=== PATIENT | female | born 2000 | race Hispanic/Latino ===

== ENCOUNTER 2019-12-02 18:19 | Observation (INO) | payer BC ==
[2019-12-02 19:44] VITALS: BMI 40.5
[2019-12-02] MEDS: MORPHINE 2 MG/ML SYR IV PRN (20:55)
[2019-12-02] MEDS: NA CHLORIDE 0.9% 1,000 ML IV SCH (20:55)
[2019-12-02] MEDS ORDERED: CEFOXITIN SODIUM 1 GM/VIAL IVPB SCH (21:00)
[2019-12-02] MEDS ORDERED: CEFOXITIN SODIUM 1 GM/VIAL ONE (21:05)
[2019-12-02] MEDS: CEFOXITIN 1 GM in NA CHLORIDE 0.9% 50 ML IVPB SCH (21:37)
[2019-12-02] MEDS: ONDANSETRON 4 MG/2 ML VIAL IV PRN (21:37)
[2019-12-02] MEDS ORDERED: NA CHLORIDE 0.9% 50 ML ONE (21:38)
[2019-12-03] MEDS ORDERED: NA CHLORIDE 0.9% 50 ML ONE (04:33)
[2019-12-03 04:37] LABS: Urine Appearance CLEAR; Urine Bilirubin NEGATIVE (NEG); Urine Blood NEGATIVE (NEG); Urine Color YELLOW; Urine Glucose NEGATIVE (NEG); Urine Protein NEGATIVE (NEG); Urine Specific Gravity >=1.030 (1.005-1.030); Urine Urobilinogen 0.2 mg/dL (0.2-1.0)
[2019-12-03 05:02] LABS: Absolute Lymphocytes (CBC) 2.4 K/uL (0.7-4.9); Basophils % 0.5 % (0-1.3); Hematocrit 35.5 % (36.0-45.0); Lymphocytes % 20.8 % (15.3-44.8); MPV 8.5 fL (7.6-11.3); RBC Red Blood Cell Count 4.31 M/uL (3.86-4.86)
[2019-12-03] MEDS: CEFOXITIN 1 GM in NA CHLORIDE 0.9% 50 ML IVPB SCH (05:06)
[2019-12-03] MEDS: NA CHLORIDE 0.9% 1,000 ML IV SCH ×2 (05:09→20:32)
[2019-12-03 05:22] LABS: Albumin 3.3 g/dL (3.4-5.0); Bilirubin Direct 0.1 mg/dL (0-0.2); Bilirubin Total 0.4 mg/dL (0.2-1.0); Potassium 3.7 mmol/L (3.5-5.1); Protein, Total 6.2 g/dL (6.4-8.2)
[2019-12-03 05:32] LABS: Urine Bacteria <20 /HPF (<20); Urine Culture Reflex Order REFLEXED; Urine RBC NONE SEEN /HPF (NONE SEEN); Urine Urothelial Cells <5 /HPF (NONE SEEN)
--- NOTE | 2019-12-03 08:54 | RAD REPORT ---
EXAM DESCRIPTION: NM - Hepatobiliary System W/ Ph - 12/03/2019 7:36 am CLINICAL HISTORY: ABDOMINAL PAIN COMPARISON: No comparisons TECHNIQUE: The patient was administered 6.1 mCi Tc99m Choletec. Imaging of the right upper quadrant was performed initially for up to 60 minutes. Gallbladder ejection fraction determination was then performed utilizing synthetic 1.5 mgm CCK over a slow 30 minute infusion. FINDINGS: Normal hepatic uptake and excretion with appropriate clearance of background blood pool ac tivity. Normal visualization of biliary and small bowel activity. Gallbladder visualizes within normal time limits. The calculated ejection fraction is 26% (normal gre ater than 35%). Subjective pain reported by the patient: Pre-procedure - 5/10 During or subsequent to synthetic CCK infusion - 03/28 IMPRESSION: Patient cystic duct and patent sphincter of Oddi. No delay in visualization of the gallb ladder, biliary tree, or duodenum. Ejection fraction is 26% (normal greater than 35%). Subjective patient pain assessment as detailed above.
[2019-12-03] MEDS: ONDANSETRON 4 MG/2 ML VIAL IV PRN ×2 (08:55→17:01)
[2019-12-03] MEDS: MORPHINE 2 MG/ML SYR IV PRN ×3 (08:56→20:31)
[2019-12-03] MEDS ORDERED: Ringers Lactate 1,000 ML IV ONE (10:25)
[2019-12-03] MEDS ORDERED: propofoL 200 MG/20 ML VIAL IV ONE (10:36)
[2019-12-03] MEDS ORDERED: MIDAZOLAM HCL 2 MG/2 ML INJ ONE ×2 (10:36→12:14)
[2019-12-03] MEDS ORDERED: LIDOCAINE 2% MPF 5 ML VIAL ONE (10:36)
[2019-12-03] MEDS ORDERED: FENTANYL CITR 100 MCG/2 ML ONE ×2 (10:37→11:31)
[2019-12-03] MEDS ORDERED: ROCURONIUM 50 MG/5 ML VIAL IV ONE (10:38)
[2019-12-03] MEDS ORDERED: NEOSTIGMINE 1 MG/ML -5 ML ONE (10:38)
[2019-12-03] MEDS ORDERED: ONDANSETRON 4 MG/2 ML VIAL ONE (10:38)
[2019-12-03] MEDS ORDERED: GLYCOPYRROLATE 0.2 MG/ML SYR ONE (10:38)
[2019-12-03] MEDS ORDERED: SUCCINYLCHOLINE 20 MG/ML (10 ML) IV ONE (10:51)
[2019-12-03] MEDS: CEFOXITIN/SWI 1gm 1 GM/10 ML SYR IV SCH ×2 (10:55→18:18)
--- NOTE | 2019-12-03 11:24 | HP ---
Date of Admission: 12/02/2019 Diagnoses: Epigastric and right upper quadrant pain, cholecystitis. History Of Present Illness: This is the case of a 19-year-old patient with about a 2-day history of epigastric and right upper quadrant pain radiating to the back associated with nausea, vomiting, bloa ting. Not associated with any trauma. Most of the time, postprandial; although, in the last 12 hour s, has not gone away. She denies any dysuria, hematuria, hematochezia, or melena. Denies any recent travelling out of the country. Denies any family member sick at home. The parents are well known b y us since one of them has stones in the gallbladder and other one had biliary dyskinesia with sympto ms similar to that. The patient went to [place] [facility], which is across the street, had initial workup. [facility] physician is convinced this patient has a cholecystitis, although ultrasound at that moment did not show any gallstones. He asked me that this patient had intractable pain, to see if I can take t patient to this hospital and keep her under observation or even prove that it is a gallbladder dis ease. She has no reflux at this time. No history of peptic ulcer disease. I accepted the patient f or transfer. Allergies: NONE. Social History: She does smoke. She does drink alcohol. Medical History: None. Medications: None. Review of Systems: Ten points otherwise unremarkable. Family History: As above. Physical Examination: General: The patient is awake and alert. HEENT: Pupils are equal and reactive, anicteric. Neck: Supple. Chest: Clear. Abdomen: Epigastric and right upper quadrant pain with Infante sign positive. The rest of the abdome n is soft and depressible. Rectal: Deferred. Breast: Deferred. Extremity: Good capillary refill. Blood work from [place] was reviewed. It is not present in our computer. The ultrasound done in [place] , we do not have the films, we just have the report. They could not find any stones in the gallbladd er. Assessment And Plan: This 19-year-old patient is behaving, with Infante sign, like acute cholecystiti s. I remember the dad having similar symptoms and we proved eventually he had biliary dyskinesia, an d the parents obviously want something to be done if possible. So, admitted the patient to the [facility] to keep her in bowel rest and then order a HIDA scan to see if she has a component of cholecystit is. The benefits, alternatives, and risks of laparoscopic, possible open cholecystectomy were fully explained to her and the parents in case we prove that this is gallbladder with benefits, alternative s, and risks including, but not limited to infection, bleeding, damage to adjacent structures, anesth esia complication, choledocholithiasis, bile leak, pancreatitis, NE, and even . She also unders tands this may not relieve any symptoms. She might need more than 1 surgical intervention. She was explained also the importance of weight loss. If this continues, we explained to her the importance of diet control and eventually she will be referred to a chart collector in the morning. VEENA Voice ID: [id number]
--- NOTE | 2019-12-03 11:43 | P.BOP ---
Preoperative diagnosis: acute cholecystitis, RUQ abd pain , biliary dyskinesia Postoperative diagnosis: same Primary procedure: Lap cholecystectomy Industrial Pharmacist: NICKO HICKS (FERMENTING CELLARS SUPERVISOR) Estimated blood loss: <10cc Specimen: gb Findings: as above Anesthesia: General Complications: None Transferred to: Recovery Room Condition: Good
[2019-12-03] MEDS ORDERED: MEPERIDINE HCL 25 MG/0.5 ML ONE (12:32)
[2019-12-03] MEDS: HYDROCODONE/APAP 5/325 MG TAB PO PRN ×3 (14:05→21:47)
[2019-12-03 22:26] VITALS: O2SAT 98
--- NOTE | 2019-12-03 23:05 | OP ---
Date of Procedure: 12/03/2019 Surgeon: Anastacio Lou MD Preoperative Diagnoses: Intractable right upper quadrant abdominal pain and epigastric pain, Infante sign positive, morbid obesity, biliary dyskinesia, acute cholecystitis. Postoperative Diagnosis: Intractable right upper quadrant abdominal pain and epigastric pain, Infante sign positive, morbid obesity, biliary dyskinesia, acute cholecystitis. Procedure: Laparoscopic cholecystectomy. Anesthesia: General plus local. Findings: As above. Indications: This is a case 19-year-old patient transferred from ER yesterday due to intractable abd ominal pain, right upper quadrant with Infante sign positive. An initial sonogram did not show gallst ones, but HIDA scan shows bladder dyskinesia with duplication of symptoms. The patient's family had this experience before biliary dyskinesia to the ER, she has the same symptoms and they pr eferred to her to have the surgery done during this admission. We previously consulted GI since the doctors in the family to rule out any other a disease including peptic ulcer disease or GI bleed component. At this moment, there is no gastrointestinal bleeding and there is no hematemesis. She understands the importance of diet control. The patient signed a consent. Description Of Procedure: Patient was brought to the operating room, placed in supine position. Ane sthesia was given without complication. Abdominal area was prepped and draped in sterile fashion. M arcaine 0.5% was injected for local anesthetic, followed by sharp incision of the skin in the infraum bilical region. Incision was carried down to fascia, which was opened under direct vision. Peritone um was encountered, opened under direct vision. Vicryl #1 placed inside of the fascia. Dary troca r was carefully introduced. No bleeding was obtained. I placed 3 more trocars, 5 mm each one of the m on the right upper quadrant under direct visualization. This allowed me to put a grasper in the fu ndus of the gallbladder. The gallbladder looks so distended that have to be deflated with an Endo ne edle under direct visualization. was removed. A grasper placed in the fundus of the gall bladder, another grasper in the infundibulum retracting the gallbladder in the inferolateral fashion exposing the triangle of Calot and obtaining critical view of safety. Cystic duct and cystic artery were clearly isolated free circumferentially and a connection between those and the gallbladder were clearly identified. I proceeded to ligate those by using at least 3 clips proximal, 1 clip distal, l igation in middle. The same was done with the cystic artery. No bile leak. No bleeding. The gallb ladder was removed from liver using Bovie cauterizer and removed from abdominal cavity using EndoCatc h through the umbilical incision. The area was inspected once again. The gallbladder fossa with no bleeding. Clips were intact with no bleeding. No bile leak. At that moment, I proceeded to remove the trocars under direct vision. Deflated the pneumoperitoneum. Closed the fascia with #1 Vicryl. Irrigated subcutaneous tissue closed that with 3-0 chromic and skin in a subcuticular fashion with St van-Strips on top. Sponge count and instrument counts were correct. Patient tolerated the procedure well. Patient was sent to recovery in stable condition. KLAUS/TRAVIS Voice ID: [id number] Report ID: [id number]
[2019-12-04] MEDS: MORPHINE 2 MG/ML SYR IV PRN ×4 (00:07→12:31)
[2019-12-04] MEDS: CEFOXITIN/SWI 1gm 1 GM/10 ML SYR IV SCH ×2 (00:07→08:13)
[2019-12-04] MEDS: HYDROCODONE/APAP 5/325 MG TAB PO PRN ×4 (02:07→14:11)
[2019-12-04] MEDS ORDERED: PANTOPRAZOLE 40MG TABLET PO SCH (06:30)
[2019-12-04] MEDS: NA CHLORIDE 0.9% 1,000 ML IV SCH (08:17)
[2019-12-04 14:17] VITALS: BP 115/72; TEMP 97.3
== END 2019-12-04 14:24 | disposition home or self-care (01) ==
LOC: 4TH 18:19
PROVIDERS: ADMIT Surgery; ATTEND Surgery
PROC: 0FT44ZZ Resection of Gallbladder, Percutaneous Endoscopic Approach (ICD-10-PCS; principal; 2019-12-03 11:15)
DX: K81.0 Acute cholecystitis (principal); K82.8 Other specified diseases of gallbladder; E66.01 Morbid (severe) obesity due to excess calories; Z68.41 Body mass index [BMI] 40.0-44.9, adult
CPT/HCPCS: 87088; 85025; 81001; 87086; 80048; 36415; 81025; 80076; 88304; 78227; 47562; G0379; J2704; J2250 ×2; J3010 ×2; J2270 ×8; J2175; J2710; G0378 ×5; J7120; J7030 ×3; J0694; J2405 ×4; J2805; A9537; J0330

== ENCOUNTER 2020-05-15 18:25 | Emergency (ER) | payer BC, SELFPAY ==
[2020-05-15] MEDS ORDERED: IBUPROFEN 400 MG TAB ONE (20:42)
--- NOTE | 2020-05-15 21:28 | RAD REPORT ---
EXAM DESCRIPTION: RAD - Thoracic Spine Ap/Lat - 05/15/2020 9:20 pm CLINICAL HISTORY: PAIN Radiculopathy COMPARISON: No comparisons FINDINGS: The thoracic spine vertebral body heights and disc spaces are largely maintained. No acute compression fracture. No significant malalignment. IMPRESSION: Negative study.
--- NOTE | 2020-05-15 21:28 | RAD REPORT ---
EXAM DESCRIPTION: RAD - Lumbar Spine 3 Views - 05/15/2020 9:20 pm CLINICAL HISTORY: PAIN Radiculopathy COMPARISON: No comparisons FINDINGS: Vertebral body heights appear maintained. No compression fracture noted. Mild lower lumbar spondylosis. No spondylolysis or spondylolisthesis. Cholecystectomy. IMPRESSION: No acute lumbar spine abnormality.
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
[2020-05-15 22:26] VITALS: BP 136/79; TEMP 97.4; O2SAT 99
--- NOTE | 2020-05-16 11:55 | RAD REPORT ---
EXAM DESCRIPTION: RAD - Knee Right 2 View - 05/15/2020 9:23 pm CLINICAL HISTORY: Right knee pain status post injury FINDINGS: No fracture or dislocation is seen.
== END 2020-05-15 22:11 | disposition home or self-care (01) ==
LOC: ER 18:25
DX: M25.561 Pain in right knee (principal); V89.2XXA Person injured in unspecified motor-vehicle accident, traffic, initial encounter
CPT/HCPCS: 72070; 72100; 99284

== ENCOUNTER 2024-09-02 01:13 | Emergency (ER) | payer OTHER ==
[2024-09-02] MEDS ORDERED: ONDANSETRON 4 MG/2 ML VIAL ONE (01:43)
[2024-09-02] MEDS ORDERED: NA CHLORIDE 0.9% 1,000 ML ONE (01:44)
[2024-09-02 01:45] LABS: Absolute Eosinophils 0.1 K/uL (0-0.5); Absolute Lymphocytes (CBC) 1.2 K/uL (0.7-4.9); Absolute Monocytes 0.5 K/uL (0.1-1.3); Absolute Neutrophil 10.3 K/uL (1.8-8.0); Basophils % 0.2 % (0-1.3); Eosinophils % 0.5 % (0-4.4); Hematocrit 34.9 % (36.0-45.0); Hemoglobin 11.7 g/dL (12.0-15.0); Lymphocytes % 9.8 % (15.3-44.8); MCHC 33.4 g/dL (32.0-36.0); MPV 8.5 fL (7.6-11.3); Neutrophils % 85.5 % (41.7-73.7); Nucleated Red Blood Cells % 0.1 % (0-0); Platelets 268 thou/uL (152-406); RBC Red Blood Cell Count 4.16 M/uL (3.86-4.86); Red Cell Distribution Width 13.6 % (12.1-15.2)
[2024-09-02 01:57] LABS: AST/SGOT 16 U/L (15-37); Albumin 2.8 g/dL (3.4-5.0); Albumin/Globulin Ratio 0.7 (1.1-1.8); Alkaline Phosphatase 130 U/L (45-117); Anion Gap 10.7 mEq/L (5.0-15.0); BUN Blood Urea Nitrogen 10 mg/dL (7-18); Bicarbonate 21 mEq/L (21-32); Bilirubin Total 0.3 mg/dL (0.2-1.0); Globulin 3.9 g/dL (2.3-3.5); Glomerular Filtration Rate 124 ml/min (=/>90); Glucose Level 101 mg/dL (74-106); Lipase 46 U/L (13-75); Potassium 3.7 mEq/L (3.5-5.1); Protein, Total 6.7 g/dL (6.4-8.2); Sodium Level 138 mEq/L (136-145)
[2024-09-02 02:02] LABS: ALT/SGPT < 14 U/L (13-56)
--- NOTE | 2024-09-02 02:35 | ER ---
Nurse's Notes [facility] Name: Trice Lou Age: 24 yrs Sex: Female : 2000 Arrival Date: 09/02/2024 Time: 01:13 Bed 15 Private MD: Diagnosis: 33 weeks gestation of ;Vomiting;Diarrhea, unspecified Presentation: 09/02 01:28 Chief complaint: Patient states: I have been throwing up and have had diarrhea since vc1 about 6:30 last night. I am worried about being dehydrated. Baby is moving and I have a doppler at home and his heart rate was 128. Coronavirus screen: Client denies travel out of the [place] in the last 14 days. At this time, the client does not indicate any symptoms associated with coronavirus-19. Ebola Screen: Patient negative for fever greater than or equal to 101.5 degrees Fahrenheit, and additional compatible Ebola Virus Disease symptoms Patient denies exposure to infectious person. Patient denies travel to an Ebola-affected area in the 21 days before illness onset. No symptoms or risks identified at this time. Initial Sepsis Screen: Does the patient meet any 2 criteria? No. Patient's initial sepsis screen is negative. Does the patient have a suspected source of infection? No. Patient's initial sepsis screen is negative. Risk Assessment: Do you want to hurt yourself or someone else? Patient reports no desire to harm self or others. Onset of symptoms was September 01, 2024 at 18:30. 01:28 Method Of Arrival: Ambulatory vc1 01:28 Acuity: NESS 3 vc1 Triage Assessment: 01:34 General: Appears in no apparent distress. comfortable, well groomed, well developed, vc1 well nourished, Behavior is calm, cooperative, appropriate for age. Pain: Complains of pain in right lower quadrant and left lower quadrant. EENT: No deficits noted. No signs and/or symptoms were reported regarding the EENT system. Neuro: Level of Consciousness is awake, alert, obeys commands, Oriented to person, place, time, situation, Appropriate for age. Cardiovascular: Capillary refill < 3 seconds Patient's skin is warm and dry. Respiratory: Airway is patent Respiratory effort is even, unlabored, Respiratory pattern is regular, symmetrical. GI: Reports lower abdominal pain, diarrhea, nausea, vomiting. : No deficits noted. No signs and/or symptoms were reported regarding the genitourinary system. : Denies vaginal bleeding. Derm: Skin is intact, is healthy with good turgor, Skin is dry, Skin is normal, Skin temperature is warm. Musculoskeletal: No deficits noted. No signs and/or symptoms reported regarding the musculoskeletal system. Circulation, motion, and sensation intact. Range of motion: intact in all extremities. 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 - Infectious Disease History:: Denies. - Social history:: Smoking status: Reported history of juuling and/or vaping. - Family history:: not pertinent. Screenin:32 [facility] ED Fall Risk Assessment (Adult) History of falling in the last 3 months, vc1 including since admission No falls in past 3 months (0 pts) Confusion or Disorientation No (0 pts) Intoxicated or Sedated No (0 pts) Impaired Gait No (0 pts) Mobility Assist Device Used No (0 pt) Altered Elimination No (0 pt) Score/Fall Risk Level 0 - 2 = Low Risk Oriented to surroundings, Maintained a safe environment, Educated pt \T\ family on fall prevention, incl call for assistance when getting out of bed. Abuse screen: Denies threats or abuse. Nutritional screening: No deficits noted. Tuberculosis screening: No symptoms or risk factors identified. Assessment: 01:30 General: Appears in no apparent distress. Behavior is calm, cooperative, appropriate dd2 for age. Pain: Denies pain. Neuro: Level of Consciousness is awake, alert, obeys commands, Oriented to person, place, time, situation, Appropriate for age. Cardiovascular: Patient's skin is warm and dry. Respiratory: Airway is patent Respiratory effort is even, unlabored, Respiratory pattern is regular, symmetrical. GI: Abdomen is round non-distended, Bowel sounds present X 4 quads. Abd is soft and non tender X 4 quads. Reports diarrhea, nausea, vomiting. : No signs and/or symptoms were reported regarding the genitourinary system. EENT: No deficits noted. No signs and/or symptoms were reported regarding the EENT system. Derm: No deficits noted. No signs and/or symptoms reported regarding the dermatologic system. Musculoskeletal: No deficits noted. No signs and/or symptoms reported regarding the musculoskeletal system. Vital Signs: 01:28 BP 117 / 86; Pulse 91; Resp 17; Temp 98.5; Pulse Ox 98% ; Weight 97.07 kg; Height 5 ft. vc1 2 in. ; 02:54 BP 121 / 78; Pulse 84; Resp 16; Pulse Ox 98% ; dd2 01:28 Body Mass Index 39.14 (97.07 kg, 157.48 cm) vc1 ED Course: 01:17 Patient arrived in ED. [id number] 01:19 Anshu Hutson MD is Attending Physician. driss 01:30 Triage completed. vc1 01:30 Provided Education on: call light, medications, labs/procedures and result times. dd2 01:30 No provider procedures requiring assistance completed. dd2 01:31 Arm band placed on right wrist. vc1 01:32 Patient has correct armband on for positive identification. Bed in low position. Call vc1 light in reach. Pulse ox on. NIBP on. 01:34 Inserted saline lock: 22 gauge in right antecubital area, using aseptic technique. oe Blood collected. Flushed with 10 mL NS. 01:35 ELROY GONZALES, RN is Primary Nurse. dd2 01:35 CBC with Diff Sent. dd2 01:35 CMP Sent. dd2 01:35 Lipase Sent. dd2 02:04 US OB Limited In Process Unspecified. EDMS 02:59 IV discontinued, intact, bleeding controlled, No redness/swelling at site. Pressure dd2 dressing applied. Administered Medications: 01:55 Drug: Ondansetron IVP 4 mg IVP once; over 2 minutes Route: IVP; Site: right antecubital;dd2 02:10 Follow up: Response: No adverse reaction dd2 01:55 Drug: NS 0.9% IV 1000 ml IV at 1 bolus Per protocol; to be given as a bolus over 60 dd2 minutes Route: IV; Rate: 1 bolus; Site: right antecubital; 02:10 Follow up: Response: No adverse reaction dd2 02:10 Follow up: Response: No adverse reaction dd2 02:55 Follow up: Response: No adverse reaction; IV Status: Completed infusion dd2 Medication: 01:32 VIS not applicable for this client. vc1 Outcome: 02:34 Discharge ordered by . driss 02:59 Discharged to home ambulatory, dd2 02:59 Condition: stable 02:59 Discharge instructions given to patient, Instructed on discharge instructions, follow up and referral plans. medication usage, Demonstrated understanding of instructions, follow-up care, medications, 02:59 Prescriptions given X 1, 03:00 Patient left the ED. dd2 Signatures: Dispatcher [employer] EDMS Anshu Hutson MD MD cha Espinosa, Orlando oe Jeffries, Jennifer [email or web address] Zuleika Diaz RN RN vc1 ELROY GONZALES RN RN dd2
--- NOTE | 2024-09-02 02:35 | EDPHYS ---
Physician Documentation [facility] Name: Trice Lou Age: 24 yrs Sex: Female : 2000 Arrival Date: 09/02/2024 Time: 01:13 Bed 15 Private MD: ED Physician Anshu Hutson HPI: 09/02 02:31 This 24 yrs old Female presents to ER via Ambulatory with complaints of Est 35 driss wks gestation, Nausea/Vomiting. 02:31 The patient presents to the emergency department with nausea, vomiting, diarrhea, that driss is intermittent. Onset: The symptoms/episode began/occurred yesterday. Possible causes: unknown. The symptoms are aggravated by nothing. The symptoms are alleviated by nothing. Associated signs and symptoms: The patient has no apparent associated signs or symptoms. The patient has experienced similar episodes in the past, a few times. 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 - Infectious Disease History:: Denies. - Social history:: Smoking status: Reported history of juuling and/or vaping. - Family history:: not pertinent. ROS: 02:31 Constitutional: Negative for fever, chills, and weight loss, Eyes: Negative for injury, driss pain, redness, and discharge, ENT: Negative for injury, pain, and discharge, Neck: Negative for injury, pain, and swelling, Cardiovascular: Negative for chest pain, palpitations, and edema, Respiratory: Negative for shortness of breath, cough, wheezing, and pleuritic chest pain, Back: Negative for injury and pain, : Negative for injury, bleeding, discharge, and swelling, MS/Extremity: Negative for injury and deformity, Skin: Negative for injury, rash, and discoloration, Neuro: Negative for headache, weakness, numbness, tingling, and seizure, Psych: Negative for depression, anxiety, suicide ideation, homicidal ideation, and hallucinations, Allergy/Immunology: Negative for hives, rash, and allergies, Endocrine: Negative for neck swelling, polydipsia, polyuria, polyphagia, and marked weight changes, Hematologic/Lymphatic: Negative for swollen nodes, abnormal bleeding, and unusual bruising, 02:31 Abdomen/GI: Positive for nausea and vomiting, nausea, vomiting, diarrhea, abdominal distension, Exam: 02:31 Constitutional: This is a well developed, well nourished patient who is awake, alert, driss and in no acute distress. Head/Face: Normocephalic, atraumatic. Eyes: Pupils equal round and reactive to light, extra-ocular motions intact. Lids and lashes normal. Conjunctiva and sclera are non-icteric and not injected. Cornea within normal limits. Periorbital areas with no swelling, redness, or edema. ENT: Nares patent. No nasal discharge, no septal abnormalities noted. Tympanic membranes are normal and external auditory canals are clear. Oropharynx with no redness, swelling, or masses, exudates, or evidence of obstruction, uvula midline. Mucous membranes moist. Neck: Trachea midline, no thyromegaly or masses palpated, and no cervical lymphadenopathy. Supple, full range of motion without nuchal rigidity, or vertebral point tenderness. No Meningismus. Chest/axilla: Normal chest wall appearance and motion. Nontender with no deformity. No lesions are appreciated. Cardiovascular: Regular rate and rhythm with a normal S1 and S2. No gallops, murmurs, or rubs. Normal PMI, no JVD. No pulse deficits. Respiratory: Lungs have equal breath sounds bilaterally, clear to auscultation and percussion. No rales, rhonchi or wheezes noted. No increased work of breathing, no retractions or nasal flaring. Abdomen/GI: Soft, non-tender, with normal bowel sounds. No distension or tympany. No guarding or rebound. No evidence of tenderness throughout. Back: No spinal tenderness. No costovertebral tenderness. Full range of motion. Skin: Warm, dry with normal turgor. Normal color with no rashes, no lesions, and no evidence of cellulitis. MS/ Extremity: Pulses equal, no cyanosis. Neurovascular intact. Full, normal range of motion. Neuro: Awake and alert, GCS 15, oriented to person, place, time, and situation. Cranial nerves II-XII grossly intact. Motor strength 5/5 in all extremities. Sensory grossly intact. Cerebellar exam normal. Normal gait. Psych: Awake, alert, with orientation to person, place and time. Behavior, mood, and affect are within normal limits. Vital Signs: 01:28 BP 117 / 86; Pulse 91; Resp 17; Temp 98.5; Pulse Ox 98% ; Weight 97.07 kg; Height 5 ft. vc1 2 in. ; 02:54 BP 121 / 78; Pulse 84; Resp 16; Pulse Ox 98% ; dd2 01:28 Body Mass Index 39.14 (97.07 kg, 157.48 cm) vc1 MDM: 01:19 Medical Screening Exam initiated driss 02:33 Differential diagnosis: Nonspecific abd pain, gastritis, cholecystitis, pancreatitis, driss appendicitis, diverticulitis, viral gastroenteritis, gastroenteritis. Data reviewed: vital signs, nurses notes, lab test result(s), radiologic studies, ultrasound. I considered the following discharge prescriptions or medication management in the emergency department Medications were administered in the Emergency Department. See MAR. Test considered but Not performed: CT: NO CT. Historians other than the Patient: PT YASMEEN INFORMED. Care significantly affected by the following chronic conditions: Obesity, . 09/02 01:22 Order name: CBC with Diff [facility] 09/02 01:22 Order name: CMP; Complete Time: 02:27 [facility] 09/02 01:22 Order name: Lipase; Complete Time: 02:27 [facility] 09/02 01:22 Order name: Urinalysis w/ reflexes [facility] 09/02 01:55 Order name: Manual Differential EDMS 09/02 01:22 Order name: US OB Limited [facility] 09/02 01:22 Order name: IV Saline Lock; Complete Time: 01:35 [facility] 09/02 01:22 Order name: Labs collected and sent; Complete Time: :35 [facility] 09/02 02:31 Order name: PO challenge driss Administered Medications: 01:55 Drug: Ondansetron IVP 4 mg IVP once; over 2 minutes Route: IVP; Site: right antecubital;dd2 02:10 Follow up: Response: No adverse reaction dd2 01:55 Drug: NS 0.9% IV 1000 ml IV at 1 bolus Per protocol; to be given as a bolus over 60 dd2 minutes Route: IV; Rate: 1 bolus; Site: right antecubital; 02:10 Follow up: Response: No adverse reaction dd2 02:10 Follow up: Response: No adverse reaction dd2 02:55 Follow up: Response: No adverse reaction; IV Status: Completed infusion dd2 Disposition Summary: 09/02/24 02:34 Discharge Ordered Notes: Location: Home driss Problem: new driss Symptoms: have improved driss Condition: Stable driss Diagnosis - 33 weeks gestation of driss - Vomiting driss - Diarrhea, unspecified driss Followup: driss - With: Private Physician - When: 2 - 3 days - Reason: Recheck today's complaints, Continuance of care, Re-evaluation by your physician Discharge Instructions: - Discharge Summary Sheet driss - Food Choices to Help Relieve Diarrhea, Adult driss - Diarrhea, Adult driss - Care driss - Third Trimester of driss - Third Trimester of , [id number] driss - Vomiting, Adult driss Forms: - Medication Reconciliation Form driss - Antibiotic Education driss - Prescription Opioid Use driss - Patient Portal Instructions [facility] - Leadership Thank You Letter [facility] - Work release form dd2 Prescriptions: - ondansetron 4 mg Oral Tablet,disintegrating - take 1 tablet ORAL route every 8-12 hours for 5 days; 20 tablet; Refills: 0, driss Product Selection Permitted Signatures: Dispatcher [employer] Anshu Gomes MD MD cha Calcote, Vanessa, RN RN vc1 ELROY GONZALES RN RN dd2 Corrections: (The following items were deleted from the chart) 01:23 01:23 CBC+H.LAB.BRZ ordered. EDMS EDMS 01:23 01:23 COMPREHENSIVE METABOLIC PANEL+C.LAB.BRZ ordered. EDMS EDMS 01:23 01:23 LIPASE+C.LAB.BRZ ordered. EDMS EDMS 01:23 01:23 Urinalysis+U.LAB.BRZ ordered. EDMS EDMS
[2024-09-02 02:36] LABS: Specific Gravity > 1.030 (1.005-1.030); Urine Bacteria <20 /HPF (<20); Urine Bilirubin NEGATIVE (Negative); Urine Blood Negative (Negative); Urine Clarity Extremely Turbid (Clear); Urine Color Yellow (Yellow); Urine Culture Reflex Order NOT NEEDED; Urine Glucose NEGATIVE (Negative); Urine Ketones TRACE (Negative); Urine Microscopic Reflex YN ORDER UMIC; Urine Mucus 2+ /HPF (None Seen); Urine Nitrite NEGATIVE (Negative); Urine Protein 1+ (Negative); Urine RBC <5 /HPF (None Seen); Urine Urobilinogen Normal (Normal); Urine WBC <5 /HPF (<5)
--- NOTE | 2024-09-02 04:19 | RAD REPORT ---
EXAMINATION: US LIMITED INDICATION: Female, 24 years old, Abd pain;Abd cramping, COMPARISON(S): 05/14/2024 TECHNIQUE: Transabdominal ultrasound evaluation of maternal and anatomic structures. FINDINGS: MATERNAL: The cervix is obscured without obvious abnormality. Unremarkable limited assessment of the adnexa. : Fetus: Single . Heart rate measures 132 bpm. position is cephalic. Placenta: Position is anterior. No evidence of previa. ANNIA: 11.9 cm. BIOMETRY: AC: 29.1 cm, 33 weeks 0 days US Dating (AUA): 33 weeks 0 days, with KUSH 10/21/2024. ANATOMY: Visualized structures are within normal limits. IMPRESSION: 1. Single intrauterine fetus with cardiac activity in cephalic position. Size measures 1 week 5 day s less than dates. 2. No evidence of gestational complication. Electronically signed by: Malvin Garcia MD 09/02/2024 03:39 AM CDT RP Due to temporary technical issues with the PACS/SSN [employer] reporting system, reports are being signed by the in-house radiologist without review as a courtesy to ensure prompt reporting the interpreting radiologist is fully responsible for the content of the report. Transcribed Date/Time: 09/02/2024 4:19 AM
[2024-09-02 04:53] LABS: Band Neutrophils 8 % (0-1); Differential Total Cells Count 100; Lymphocytes 15 % (15-42); Monocytes 2 % (0-10); Reactive Lymphocytes 1 %; Segmented Neutrophils 74 % (40-80)
[2024-09-02 04:54] LABS: Blood Morphology Comment NOT SEEN (NOT SEEN); Platelet Estimate ADEQ
[2024-09-02 07:45] VITALS: O2SAT 98
[2024-09-02 07:46] VITALS: BP 117/86; TEMP 98.5
== END 2024-09-02 03:00 | disposition home or self-care (01) ==
LOC: ER 01:13
DX: O21.9 Vomiting of pregnancy, unspecified (principal); O99.613 Diseases of the digestive system complicating pregnancy, third trimester; R19.7 Diarrhea, unspecified; Z3A.33 33 weeks gestation of pregnancy
CPT/HCPCS: 85025; 81001; 36415; 83690; 80053; 76815; J2405; J7030; 96361; 96374; 99284

== ENCOUNTER 2025-02-09 15:59 | Emergency (ER) | payer OTHER ==
[2025-02-09] MEDS ORDERED: ONDANSETRON 4 MG/2 ML VIAL ONE (16:28)
[2025-02-09] MEDS ORDERED: MORPHINE 4 MG/ML SYR ONE (16:28)
[2025-02-09] MEDS ORDERED: NA CHLORIDE 0.9% 1,000 ML ONE (16:29)
--- NOTE | 2025-02-09 16:54 | RAD REPORT ---
EXAMINATION: US PELVIS TRANSVAGINAL WITH DOPPLER CLINICAL INDICATION: Female 24 years old. VAGINAL BLEEDING TECHNIQUE: Real-time ultrasonography of the pelvis was performed transvaginally. Color and spectral D oppler evaluation of the ovaries was performed. COMPARISON: No prior exam. FINDINGS: UTERUS AND CERVIX: The uterus measures 7.8 x 5.6 x 3.4 cm (cervix to fundus x AP x transverse). The u terus is normal. No masses seen The endometrium is normal, 9 mm in thickness. RIGHT OVARY: Normal. The right ovary measures 4.0 x 2.8 x 2.3 cm. Normal color and spectral Doppler evaluation of the right ovary.. LEFT OVARY: Normal. The left ovary measures 2.3 x 2.0 x 1.6 cm. Normal color and spectral Doppler evaluation of the left ovary.. FREE FLUID: Small, physiologic volume of free fluid in the pelvis. ADDITIONAL FINDINGS: IMPRESSION: Unremarkable exmaination.
[2025-02-09 17:04] LABS: Absolute Eosinophils 0.1 K/uL (0-0.5); Absolute Lymphocytes (CBC) 1.2 K/uL (0.7-4.9); Absolute Monocytes 0.3 K/uL (0.1-1.3); Absolute Neutrophil 4.9 K/uL (1.8-8.0); Basophils % 0.4 % (0-1.3); Eosinophils % 1.1 % (0-4.4); Hematocrit 37.4 % (36.0-45.0); Hemoglobin 12.1 g/dL (12.0-15.0); MCH 25.3 pg (27.0-35.0); MCHC 32.5 g/dL (32.0-36.0); MCV 77.8 fL (80-100); MPV 8.3 fL (7.6-11.3); Monocytes % 4.6 % (3.3-12.3); Neutrophils % 74.9 % (41.7-73.7); Platelets 318 thou/uL (152-406); RBC Red Blood Cell Count 4.81 M/uL (3.86-4.86); Red Cell Distribution Width 16.6 % (12.1-15.2)
[2025-02-09 17:14] LABS: Albumin 3.5 g/dL (3.4-5.0); Albumin/Globulin Ratio 0.9 (1.1-1.8); Anion Gap 8.8 mEq/L (5.0-15.0); Bilirubin Total 0.6 mg/dL (0.2-1.0); Globulin 3.7 g/dL (2.3-3.5); Potassium 3.8 mEq/L (3.5-5.1); Protein, Total 7.2 g/dL (6.4-8.2)
[2025-02-09] MEDS ORDERED: PROMETHAZINE INJ 25 MG/ML AMP ONE (17:29)
[2025-02-09] MEDS ORDERED: KETOROLAC 30 MG/ML INJ ONE (17:29)
--- NOTE | 2025-02-09 18:14 | RAD REPORT ---
EXAM: CT THORACIC SPINE WITHOUT CONTRAST HISTORY: PAIN COMPARISON: None TECHNIQUE: Multiple contiguous axial images were obtained in a CT of the thoracic spine without contr ast. Sagittal and coronal reformats were performed. One or more of the following dose reduction techniques were used: Automated exposure control, adjustment of the mA and kV according to patient si ze, and iterative reconstruction. Unless otherwise specified, incidental findings do not require dedicated imaging follow-up. FINDINGS: The vertebral bodies and intervertebral discs demonstrate normal height and alignment witho ut fracture or subluxation. . No degenerative changes are present. . The prevertebral and paraspinal soft tissues are unremarkable. Visualized lung ralph are clear. Th ere is patulous dilatation of the esophagus which is fluid-filled. IMPRESSION: No evidence of acute osseous abnormality of the thoracic spine. Patulous esophagus.
--- NOTE | 2025-02-09 18:19 | RAD REPORT ---
EXAMINATION: CT ABDOMEN AND PELVIS WITH CONTRAST CLINICAL INDICATION: ABD PAIN TECHNIQUE: CT abdomen and pelvis was performed, after the administration of IV contrast, as per [facility] protocol. Axial, sagittal and coronal reconstructions were obtained. One or more of the following dose reduction techniques were used: Automated exposure control, adjustment of the mA and k V according to patient size, and iterative reconstruction. Unless otherwise specified, incidental findings do not require dedicated imaging follow-up. COMPARISON: No prior exam. FINDINGS: LOWER CHEST: The visualized lung bases are clear. LIVER: Mild fatty liver is present. No focal lesion or biliary dilatation is seen. Cholecystectomy clips. SPLEEN: Normal size. No focal lesion. PANCREAS: No mass, ductal dilation, or yonatan-pancreatic fluid. ADRENALS: Normal; no mass. KIDNEYS: Normal size and contour. No hydronephrosis. GASTROINTESTINAL TRACT: No evidence of free air, significant intra-abdominal free fluid, bowel obstru ction or abscess. APPENDIX: Appendix not visualized, but no inflammatory changes in region of appendix. Mild fluid dis tention of the right colon. LYMPH NODES: No lymphadenopathy. MUSCULOSKELETAL: Lower lumbar spondylosis, with disc bulging. ADDITIONAL FINDINGS: None. IMPRESSION: No acute or concerning abnormalities seen in the abdomen or pelvis. Mild fluid distention of the right colon is possibly related to diarrhea state.
[2025-02-09 18:34] LABS: Urine Bacteria None Seen /HPF (<20); Urine Bilirubin NEGATIVE (Negative); Urine Blood 1+ (Negative); Urine Clarity Clear (Clear); Urine Color Light-Yellow (Yellow); Urine Culture Reflex Order NOT NEEDED; Urine Glucose NEGATIVE (Negative); Urine Ketones NEGATIVE (Negative); Urine Microscopic Reflex YN ORDER UMIC; Urine Mucus Slight /HPF (None Seen); Urine Nitrite NEGATIVE (Negative); Urine Protein TRACE (Negative); Urine RBC <5 /HPF (None Seen); Urine Urobilinogen Normal (Normal); Urine WBC <5 /HPF (<5); Urine WBC Clump Rare /HPF (None Seen); Urine pH 6.5 (5.0-7.0)
[2025-02-09 18:35] LABS: Specific Gravity > 1.030 (1.005-1.030)
--- NOTE | 2025-02-09 18:46 | EDPHYS ---
Physician Documentation [facility] Name: Trice Lou Age: 24 yrs Sex: Female : 2000 Arrival Date: 02/09/2025 Time: 15:59 Bed 25 Private MD: ED Physician Luc Wilson HPI: 02/09 17:30 This 24 yrs old Female presents to ER via Ambulatory with complaints of dr5 Nausea/Vomiting/Diarrhea, Abdominal Pain, Back Pain. 17:30 The patient presents to the emergency department with nausea, vomiting, that is dr5 intermittent, 3 times today, abdominal pain, of the right upper quadrant, left upper quadrant, right lower quadrant and left lower quadrant. Onset: The symptoms/episode began/occurred acutely. Patient is a 24-year-old female with history of endometriosis, GERD, portal hypertension gastropathy coming in with generalized diffuse abdominal pain that started this morning with nausea vomiting. Patient also reports that she has had vaginal bleeding for the past month.. 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 - Infectious Disease History:: Denies. - Social history:: Smoking status: Reported history of juuling and/or vaping. ROS: 17:30 Constitutional: as per hpi dr5 Exam: 17:30 Constitutional: This is a well developed, well nourished patient who is awake, alert, dr5 and in no acute distress. Head/Face: Normocephalic, atraumatic. Eyes: Pupils equal round and reactive to light, extra-ocular motions intact. Lids and lashes normal. Conjunctiva and sclera are non-icteric and not injected. Cornea within normal limits. Periorbital areas with no swelling, redness, or edema. Neck: Trachea midline, no thyromegaly or masses palpated, and no cervical lymphadenopathy. Supple, full range of motion without nuchal rigidity, or vertebral point tenderness. No Meningismus. Chest/axilla: Normal chest wall appearance and motion. Nontender with no deformity. No lesions are appreciated. Cardiovascular: Regular rate and rhythm with a normal S1 and S2. Normal PMI, no JVD. No pulse deficits. Respiratory: Lungs have equal breath sounds bilaterally, clear to auscultation. No rales, rhonchi or wheezes noted. No increased work of breathing, no retractions or nasal flaring. Back: No spinal tenderness. No costovertebral tenderness. Full range of motion. Skin: Warm, dry with normal turgor. Normal color with no rashes, no lesions, and no evidence of cellulitis. MS/ Extremity: Pulses equal, no cyanosis. Neurovascular intact. Full, normal range of motion. Neuro: Awake and alert, GCS 15, oriented to person, place, time, and situation. Cranial nerves II-XII grossly intact. Motor strength 5/5 in all extremities. Sensory grossly intact. Cerebellar exam normal. Normal gait. 17:30 Abdomen/GI: Inspection: abdomen appears normal, Bowel sounds: normal, Palpation: moderate abdominal tenderness, in all quadrants, Vital Signs: 16:18 BP 124 / 81; Pulse 85; Resp 18 S; Temp 98.8(O); Pulse Ox 100% on R/A; Weight 102.06 kg; kc6 Height 5 ft. 2 in. (R); Pain 8/10; 17:15 BP 127 / 76; Pulse 75; Resp 17 S; Pulse Ox 99% on R/A; kc6 16:18 Body Mass Index 41.15 (102.06 kg, 157.48 cm) [facility] 16:18 Pain Scale: Adult kc6 MDM: 16:18 Medical Screening Exam initiated dr5 19:38 Differential diagnosis: Nonspecific abd pain, gastritis, pancreatitis, appendicitis, dr5 diverticulitis, viral gastroenteritis, gastroenteritis. Data reviewed: vital signs, nurses notes, lab test result(s), radiologic studies, CT scan. I considered the following discharge prescriptions or medication management in the emergency department Medications were administered in the Emergency Department. See MAR. Care significantly affected by the following chronic conditions: Hypertension, Endometriosis. Care significantly affected by the following Social Determinants of Health: Poor access to healthcare and/or lack of insurance, Poor access to transportation, Problems related to employment. Counseling: I had a detailed discussion with the patient and/or guardian regarding the historical points, exam findings, and any diagnostic results supporting the discharge/admit diagnosis, the presence of at least one elevated blood pressure reading (>120/80) during this emergency department visit, lab results, radiology results, the need for outpatient follow up, for definitive care, a family practitioner, to return to the emergency department if symptoms worsen or persist or if there are any questions or concerns that arise at home. Medication response: morphine relieved the patient's pain. Symptoms have resolved, Toradol relieved patient's pain. The symptoms have resolved. ED course: Patient reports that her nausea and pain have resolved and feeling much better. I went over all labs and CT scans with patient. Will have patient follow-up with primary care doctor this week. Patient was given pain medication and nausea medicine to take as needed while at home. All questions answered. Patient reports she is feeling much better and ready for discharge.. 02/09 16:18 Order name: CBC with Diff; Complete Time: 17:09 [facility] 02/09 16:18 Order name: CMP; Complete Time: 17:14 [facility] 02/09 16:18 Order name: Lipase; Complete Time: 17:14 [facility] 02/09 16:18 Order name: Urinalysis w/ reflexes; Complete Time: 18:38 [facility] 02/09 16:18 Order name: Test, Serum; Complete Time: 17:36 [facility] 02/09 16:18 Order name: CT Abd/Pelvis - IV Contrast Only; Complete Time: 18:20 [facility] 02/09 16:24 Order name: Transvaginal Study Probe; Complete Time: 16:55 [facility] 02/09 16:52 Order name: CT Thoracic Spine Wo Cont; Complete Time: 18:19 [facility] 02/09 16:18 Order name: IV Saline Lock; Complete Time: 16:53 [facility] 02/09 16:18 Order name: Labs collected and sent; Complete Time: 16:53 [facility] Administered Medications: 16:53 Drug: Ondansetron IVP 4 mg IVP once; over 2 minutes Route: IVP; Site: left antecubital; kc6 17:22 Follow up: Response: No adverse reaction 6 16:53 Drug: morphine IVP or IV 4 mg IVP once over 4 mins Route: IVP; Infused Over: 4 mins; kc6 Site: left antecubital; 17:22 Follow up: Response: No adverse reaction; Pain is decreased; RASS: Alert and Calm (0) kc6 16:53 Drug: NS 0.9% IV 1000 ml IV at 1 bolus Per protocol; to be given as a bolus over 60 kc6 minutes Route: IV; Rate: 1 bolus; Site: left antecubital; 18:58 Follow up: Response: No adverse reaction; IV Status: Completed infusion; IV Intake: kc6 1000ml 17:36 Drug: Promethazine IVP 25 mg IVP once Route: IVP; Site: left antecubital; kc6 17:52 Follow up: Response: No adverse reaction; Nausea is decreased; Vomiting decreased kc6 17:36 Drug: Ketorolac IVP 15 mg IVP once Route: IVP; Site: left antecubital; kc6 17:52 Follow up: Response: No adverse reaction; Pain is decreased kc6 Disposition Summary: 02/09/25 18:46 Discharge Ordered Notes: Location: Home dr5 Condition: Stable dr5 Diagnosis - Nausea with vomiting, unspecified dr5 Followup: dr5 - With: Emergency Department - When: As needed - Reason: Worsening of condition Followup: dr5 - With: Private Physician - When: 1 - 2 days - Reason: Recheck today's complaints, Continuance of care, Re-evaluation by your physician Discharge Instructions: - Discharge Summary Sheet dr5 - Nausea and Vomiting, Adult dr5 Forms: - Work release form dr5 - Medication Reconciliation Form dr5 - Antibiotic Education dr5 - Patient Portal Instructions dr5 - Leadership Thank You Letter dr5 Prescriptions: - Zofran 4 mg Oral Tablet - take 1 tablet ORAL route every 12 hours As needed; 20 tablet; Refills: 0, dr5 Product Selection Permitted - Tramadol 50 mg Oral Tablet - take 1 tablet ORAL route every 8 hours as needed; 12 tablet; Refills: 0, dr5 Product Selection Permitted Addendum: 02/11/2025 14:45 I was immediately available for consultation during this patient's visit. I did not e c2 personally see the patient or discuss the patient with the GIANNI. . Signatures: Dispatcher [employer] Natalia Montemayor RN RN kc6 Luc Wilson MD MD ec2 Amadou Simmons, COUNSELING SPECIALIST-C COUNSELING SPECIALIST-Cdr5 Corrections: (The following items were deleted from the chart) 02/09 16:18 16:18 Abdomen Pelvis W Con+CT.RAD.BRZ ordered. EDMS EDMS 16:18 16:18 Pelvis Complete+US.RAD.BRZ ordered. EDMS EDMS
--- NOTE | 2025-02-09 18:46 | ER ---
Nurse's Notes [facility] Name: Trice Lou Age: 24 yrs Sex: Female : 2000 Arrival Date: 02/09/2025 Time: 15:59 Bed 25 Private MD: Diagnosis: Nausea with vomiting, unspecified Presentation: 02/09 16:18 Chief complaint: Patient states: n/v/d and diffuse abd pain that radiates to her back kc6 since 0200 today. pt also reports vaginal bleeding x1 mo. Coronavirus screen: At this time, the client does not indicate any symptoms associated with coronavirus-19. Ebola Screen: No symptoms or risks identified at this time. Initial Sepsis Screen: Does the patient meet any 2 criteria? No. Patient's initial sepsis screen is negative. Does the patient have a suspected source of infection? No. Patient's initial sepsis screen is negative. Risk Assessment: Do you want to hurt yourself or someone else? Patient reports no desire to harm self or others. Onset of symptoms was February 09, 2025. 16:18 Method Of Arrival: Ambulatory [facility] 16:18 Acuity: NESS 3 6 Triage Assessment: 16:21 General: Appears in no apparent distress. uncomfortable, well groomed, well developed, 6 Behavior is calm, cooperative, appropriate for age. Pain: Complains of pain in abdomen diffusely Pain currently is 8 out of 10 on a pain scale. Pain began 0200 Is continuous, Noted to be grimacing, guarding. GI: Abdomen is round non-distended, Bowel sounds present X 4 quads. Abd is soft X 4 quads Abdomen is tender to palpation in abdomen diffusely Reports lower abdominal pain, upper abdominal pain, diarrhea, nausea, vomiting. : Reports vaginal bleeding that is bright red, with clots, heavy flow since x1 mo. 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 - Infectious Disease History:: Denies. - Social history:: Smoking status: Reported history of juuling and/or vaping. Screenin:22 [facility] ED Fall Risk Assessment (Adult) History of falling in the last 3 months, kc6 including since admission No falls in past 3 months (0 pts) Confusion or Disorientation No (0 pts) Intoxicated or Sedated No (0 pts) Impaired Gait No (0 pts) Mobility Assist Device Used No (0 pt) Altered Elimination No (0 pt) Score/Fall Risk Level 0 - 2 = Low Risk Oriented to surroundings, Maintained a safe environment, Educated pt \T\ family on fall prevention, incl call for assistance when getting out of bed. Abuse screen: Denies threats or abuse. Denies injuries from another. Nutritional screening: No deficits noted. Tuberculosis screening: No symptoms or risk factors identified. Assessment: 16:29 Reassessment: please see triage. kc6 17:15 Reassessment: Patient appears in no apparent distress at this time. No changes from [facility] previously documented assessment. Patient and/or family updated on plan of care and expected duration. Pain level reassessed. Patient is alert, oriented x 3, equal unlabored respirations, skin warm/dry/pink. 17:26 GI: Pt is actively vomiting. kc6 18:10 Reassessment: Patient appears in no apparent distress at this time. No changes from 6 previously documented assessment. Patient and/or family updated on plan of care and expected duration. Pain level reassessed. Patient is alert, oriented x 3, equal unlabored respirations, skin warm/dry/pink. 18:58 Reassessment: Patient appears in no apparent distress at this time. No changes from 6 previously documented assessment. Patient and/or family updated on plan of care and expected duration. Pain level reassessed. Patient is alert, oriented x 3, equal unlabored respirations, skin warm/dry/pink. Patient states feeling better. Patient states symptoms have improved. Vital Signs: 16:18 BP 124 / 81; Pulse 85; Resp 18 S; Temp 98.8(O); Pulse Ox 100% on R/A; Weight 102.06 kg; kc6 Height 5 ft. 2 in. (R); Pain 8/10; 17:15 BP 127 / 76; Pulse 75; Resp 17 S; Pulse Ox 99% on R/A; kc6 16:18 Body Mass Index 41.15 (102.06 kg, 157.48 cm) kc6 16:18 Pain Scale: Adult kc6 ED Course: 16:08 Patient arrived in ED. cj3 16:08 Amadou Simmons FNP-C is [facility]. dr5 16:08 Luc Wilson MD is Attending Physician. dr5 16:19 Triage completed. kc6 16:19 Arm band placed on. kc6 16:22 Patient has correct armband on for positive identification. Bed in low position. Call kc6 light in reach. Side rails up X 1. Adult w/ patient. Pulse ox on. NIBP on. Door closed. Noise minimized. Lights dimmed. Pillow given. Verbal reassurance given. 16:22 Patient maintains SpO2 saturation greater than 95% on room air. kc6 16:28 Natalia Myles, RN is Primary Nurse. kc6 16:35 Transvaginal Study Probe In Process Unspecified. EDMS 16:53 Inserted saline lock: 20 gauge in left antecubital area, using aseptic technique. Blood kc6 collected. Flushed with 10 mL NS. 17:27 Patient requests pain medication. kc6 18:10 CT Abd/Pelvis - IV Contrast Only In Process Unspecified. EDMS 18:10 CT Thoracic Spine Wo Cont In Process Unspecified. EDMS 18:25 Urine collected: clean catch specimen, cloudy. kc6 18:58 No provider procedures requiring assistance completed. IV discontinued, intact, kc6 bleeding controlled, No redness/swelling at site. Pressure dressing applied. Administered Medications: 16:53 Drug: Ondansetron IVP 4 mg IVP once; over 2 minutes Route: IVP; Site: left antecubital; kc6 17:22 Follow up: Response: No adverse reaction kc6 16:53 Drug: morphine IVP or IV 4 mg IVP once over 4 mins Route: IVP; Infused Over: 4 mins; kc6 Site: left antecubital; 17:22 Follow up: Response: No adverse reaction; Pain is decreased; RASS: Alert and Calm (0) kc6 16:53 Drug: NS 0.9% IV 1000 ml IV at 1 bolus Per protocol; to be given as a bolus over 60 kc6 minutes Route: IV; Rate: 1 bolus; Site: left antecubital; 18:58 Follow up: Response: No adverse reaction; IV Status: Completed infusion; IV Intake: kc6 1000ml 17:36 Drug: Promethazine IVP 25 mg IVP once Route: IVP; Site: left antecubital; kc6 17:52 Follow up: Response: No adverse reaction; Nausea is decreased; Vomiting decreased kc6 17:36 Drug: Ketorolac IVP 15 mg IVP once Route: IVP; Site: left antecubital; kc6 17:52 Follow up: Response: No adverse reaction; Pain is decreased kc6 Medication: 18:58 VIS not applicable for this client. kc6 Intake: 18:58 IV: 1000ml; Total: 1000ml. kc6 Outcome: 18:46 Discharge ordered by . dr5 18:58 Discharged to home ambulatory, with family, kc6 18:58 Condition: improved 18:58 Discharge instructions given to patient, family, Instructed on discharge instructions, follow up and referral plans. no drinking with medication, no driving heavy equipment, medication usage, Demonstrated understanding of instructions, follow-up care, medications, Prescriptions given X 2, 18:59 Patient left the ED. kc6 Signatures: Dispatcher [employer] EDMS Natalia Myles RN RN kc6 Amadou Simmons, LAST WAXER-C LAST WAXER-Cdr5 Keshia Allison cj3 Corrections: (The following items were deleted from the chart) 17:22 16:19 LMP 01/12/2025, unknown kc6 kc6
[2025-02-09 19:30] VITALS: TEMP 98.8
[2025-02-09 19:31] VITALS: BP 127/76; O2SAT 99
== END 2025-02-09 18:59 | disposition home or self-care (01) ==
LOC: ER 15:59
DX: R11.2 Nausea with vomiting, unspecified (principal); R10.817 Generalized abdominal tenderness
CPT/HCPCS: 96361; 85025; 81001; 36415; 84703; 83690; 80053; 72128; 74177; 76830; 96375; 96374; 99284; Q9967; J2550; J2405; J7030